=== PATIENT | male | born 1990 | race Caucasian/White ===

== ENCOUNTER 2016-07-20 10:57 | Emergency (ER) | payer BC ==
[~2016-07-20] VITALS: Ht 182.9 cm; Wt 94.8 kg
[2016-07-20 11:00] VITALS: Ht 182.9 cm; Wt 94.8 kg
[2016-07-20] MEDS ORDERED: No Routine Meds (11:26)
--- NOTE | 2016-07-20 11:26 | ERPDOC ---
Departure Disposition Decision Date: Jul 20, 2016 Disposition Decision Time: 13:24 Disposition: 01 DISCHARGED HOME, SELF-CARE Impression Impression Impression: Primary Impression: Palpitations Severity: Moderate Condition: Stable Seen By: Physician only Patient Instructions: Palpitations (ED) Problems/Meds/Labs Reviewed?: Yes Medications reviewed and manag: Yes Departure Forms: Return to Work/School Permit Return to Work/School Date: Jul 21, 2016 Follow up care ordered?: Yes Mental Status: Alert, Oriented HPI - Cardiac General Chief Complaint: Palpitations Stated Complaint: FAST HR/DIZZY Time Seen by Provider: 11:26 Source: patient Exam Limitations: no limitations HPI - Cardiac General Initial Comments Patient is a 26-year-old male presents emergency room for evaluation of palpitations, fast heart rate, dizziness. Patient was at work this morning at approximately 9:15 patient had a "hiccup", and then patient started having what he felt was a rapid heart rate with associated dizziness. Patient had a heart rate monitor that he placed on his arm and found his heart rate was in the 90s, he normally runs in the 60s. Patient called his father who brought patient to the ER for evaluation. On arrival patient's heart rate in the 90s however appears to be a normal sinus rhythm, patient is complaining of some mild shortness of air and some dizziness at this time. Patient states he's had a prior episode similar to this when he jumped off of a brick wall one time lasting several minutes and then self resolving Occurred At: home Prior CP/Workup: no prior chest pain, no prior cardiac workup Aspirin Today: contraindicated (most likely noncardiac in origin) Allergies: Coded Allergies: No Known Allergies (Unverified , 07/20/16) Past History Past Medical History Pt denies signifigant [facility] Surgical History Denies Surgeries Social History Smoking Status: Never smoker Substance Use Type: does not use Alcohol Intake: none Review of Systems Constitutional Constitutional: dizziness, DENIES: appetite decrease, chills, fever, weakness Eyes Vision: DENIES: double vision, loss of visual ruiz ENMT Balance: DENIES: vertigo Sinuses: DENIES: congestion Cardiovascular Cardiac: DENIES: chest pain, dyspnea on exertion Rhythm/Rate: palpitations, tachycardia Pulmonary Respiratory: dyspnea, DENIES: cough, sputum, tachypnea GI Upper Abdomen: DENIES: nausea, pain, vomiting Lower Abdomen: DENIES: constipation, diarrhea, pain General: DENIES: frequency, urgency Musculoskeletal General: DENIES: cramps, pain, weakness Integumentary Skin: DENIES: color change, itching, rash Endocrine Endocrine: DENIES: heat/cold intolerance Hematologic/Lymphatic Hematologic/Lymphatic: DENIES: anemia Physical Exam General General Nourishment: well nourished, well developed General Body Habitus: well groomed Vitals and Pain First Documented Vital Signs Date Time Temp Pulse Resp B/P Pulse Ox O2 Delivery O2 Flow Rate FiO2 07/20/16 11:00 98.7 86 16 133/80 98 Room Air Weight: Kilograms: 94.800 Height (feet): 6 Height (inches): 0 Triage Pain Scale: RN VS reviewed by Provider: Yes Eyes (brief) Eyes Brief: found: EOMI ENMT (brief) ENMT Brief: FOUND: mucosa moist, normal dentition, NOT FOUND: nasal erythema, pharnyx erythema, tonsillar deviation Neck (brief) Neck: NOT FOUND: adenopathy, spasm, tenderness Respiratory (brief) Respiratory: FOUND: clear all ruiz, equal bilaterally, NOT FOUND: rales, wheezes Cardiovascular (brief) Cardiac: FOUND: regular rate, regular rhythm Capillary Refill: <2 sec Abdomen (brief) Abdominal Brief: FOUND: bowel normo active x4, soft, NOT FOUND: distended, tender Lymphatic (brief) Lymphatic Brief: NOT FOUND: adenopathy Musculoskeletal (brief) Musculoskeletal Brief: NOT FOUND: spasm, tenderness Integumentary (brief) Integumentary Brief: FOUND: dry, pink, warm, NOT FOUND: rash Neurologic (brief) Neurological Brief: FOUND: CN w/o gross def to obs, motor-no gross deficits, sensory-no gross deficits Psychiatric (brief) Psychiatric Brief: FOUND: alert, oriented Differential Diagnoses Considering: Acute LA, Anxiety/Panic, Angina, Aortic Dissection, Atrial Fibrillation, Brugada Syndrome, Heart Block, Hyperventilation, PSVT, Pulmonary Edema, Pulmonary Embolus, Ventricular Tachycardia, WPW Progress Results/Orders Orders Procedure Category Date Status Time EKG EKG 07/20/16 Taken 10:59 Cbc W/Auto LAB 07/20/16 Complete Diff-Reflex Manual 11:31 D-Dimer LAB 07/20/16 Complete 11:31 Troponin I W LAB 07/20/16 Complete Hemolysis Index 11:31 Tsh - Thyroid Stim LAB 07/20/16 Complete Hormone 11:31 Bmp - Basic Metabolic LAB 07/20/16 Complete Panel 11:31 Chest 1 View RAD 07/20/16 Resulted 11:31 Iv Lock (Ed Only) EDM 07/20/16 Transmitted 12:[address] 07/20/16 Resulted 12:19 Normal Saline (Normal PHA 07/20/16 Complete Saline Iv) 12:30 Iohexol (Omnipaque) PHA 07/20/16 Complete 12:49 Normal Saline (Ns) PHA 07/20/16 Complete 12:49 Saline Flush (Iv PHA 07/20/16 Complete Flush) 12:49 Lab Results Laboratory Tests Test 07/20/16 11:44 White Blood Count 5.8T/MM3 Red Blood Count 5.00M/MM3 Hemoglobin 14.6GM/DL Hematocrit 43.8% Mean Corpuscular Volume 87.6UM3 Mean Corpuscular Hemoglobin 29.2UUG Mean Corpuscular Hemoglobin Concent 33.3GM/DL RDW Standard Deviation 41.8FL Platelet Count 130T/MM3 Mean Platelet Volume 10.5UM3 Immature Granulocyte % (Auto) 0.0% Neutrophils (%) (Auto) 66.8% Lymphocytes (%) (Auto) 26.3% Monocytes (%) (Auto) 6.0% Eosinophils (%) (Auto) 0.7% Basophils (%) (Auto) 0.2% Absolute Immature Granulocyte (auto 0.00T/MM3 Absolute Neutrophils (auto) 3.9T/MM3 Absolute Lymphocytes (auto) 1.5T/MM3 Absolute Monocytes (auto) 0.4T/MM3 Absolute Eosinophils (auto) 0.0T/MM3 Absolute Basophils (auto) 0.0T/MM3 D-Dimer 294NG/ML Turbidity < 20 Sodium Level 146MEQ/L Potassium Level 4.7MEQ/L Chloride Level 103MEQ/L Carbon Dioxide Level 30MEQ/L Anion Gap 13MEQ/L Blood Urea Nitrogen 19.0MG/DL Creatinine 0.9MG/DL Glomerular Filtration Rate Calc 104 BUN/Creatinine Ratio 21RATIO Glucose Level 99MG/DL Calculated Osmolality 283MOSM/KG Calcium Level 9.7MG/DL Icterus Index < 2 Troponin I < 0.012ng/ml Thyroid Stimulating Hormone (TSH) 1.13MIU/L Chemistry Specimen Hemolysis < 15 Medications Current ED Medications Sodium Chloride (Normal Saline IV) 1,000 ml @ 999 mls/hr Q1H1M ONCE IV Last administered on 07/20/16t 12:34; Start 07/20/16 at 12:30; Stop 07/20/16 at 13:30 ; Status DC Iohexol 1 bottle 1 bottle STK-MED ONCE .ROUTE ; Start 07/20/16 at 12:49; Stop at 12:50; Status DC Sodium Chloride (NS) 100 ml @ As Directed STK-MED ONCE .ROUTE ; Start 07/20/16 at 12:49; Stop 07/20/16 at 12:50; Status DC Sodium Chloride (Iv Flush) 10 ml STK-MED ONCE .ROUTE ; Start 07/20/16 at 12:49; Stop 07/20/16 at 12:50; Status DC Ketorolac Tromethamine (Toradol) 30 mg O ONCE IV ; Start 07/20/16 at 13:00; Stop 07/20/16 at 13:01; Status Cancel Ondansetron HCl (Zofran) 4 mg O ONCE IV ; Start 07/20/16 at 13:00; Stop at 13:01; Status Cancel EKG EKG : Rate: 60-100 Rhythm: sinus [place]: normal QRS: normal Intervals: normal ST/T: non-specific changes Interpreted by: signing physician Xray Xray : Xray: CXR Portable Interpretation: Normal, Reviewed Written Report CT CT : CT: PE IV contrast Interpretation: Normal, Reviewed Written Report ISREAL RODARTE MD Jul 20, 2016 11:26
[2016-07-20 11:56] LABS: BASOPHILS % (AUTO) 0.2 % (0-2); EOSINOPHILS % (AUTO) 0.7 % (0-4); HCT - HEMATOCRIT 43.8 % (41-53); HGB - HEMOGLOBIN 14.6 GM/DL (13.5-17.5); LYMPHOCYTES # (AUTO) 1.5 T/MM3 (1-4.8); LYMPHOCYTES % (AUTO) 26.3 % (23-45); MEAN CORPUSCULAR HGB 29.2 UUG (26-34); MEAN CORPUSCULAR HGB CONC(MCHC 33.3 GM/DL (31-37); MEAN CORPUSCULAR VOLUME 87.6 UM3 (80-100); MEAN PLATELET VOLUME 10.5 UM3 (9.4-12.4); MONOCYTES # (AUTO) 0.4 T/MM3 (0-0.8); NEUTROPHILS #(AUTO)-ABSOLUTE 3.9 T/MM3 (1.8-7.7); NEUTROPHILS % (AUTO) 66.8 % (33-66); WBC - WHITE BLOOD COUNT 5.8 T/MM3 (4.5-11.0)
[2016-07-20 12:04] LABS: ANION GAP 13 MEQ/L (5-15); BUN/CREATININE RATIO 21 RATIO (6-26); CALCIUM 9.7 MG/DL (8.4-10.2); CHLORIDE 103 MEQ/L (98-107); CO2 - CARBON DIOXIDE 30 MEQ/L (22-30); CREATININE 0.9 MG/DL (0.8-1.5); GLOMERULAR FILTRATION RATE 104; GLUCOSE 99 MG/DL (75-110); POTASSIUM 4.7 MEQ/L (3.6-5); SODIUM 146 MEQ/L (134-144)
--- NOTE | 2016-07-20 12:22 | DI ---
EXAM: CHEST 1 VIEW LOCATION OF DICTATION: [place] HISTORY: ITS.REASON: shortness of air COMPARISON: No prior studies available for comparison. FINDINGS: The heart size is normal. The mediastinal configuration is within normal limits. There are no consolidating opacities or pleural effusions. There is no pneumothorax. The osseous structures are within normal limits for the patient's age. IMPRESSION: No acute cardiopulmonary abnormalities demonstrated. .
[2016-07-20] MEDS ORDERED: NORMAL SALINE 1,000 ML IV ONE (12:30)
[2016-07-20 12:32] LABS: THYROID STIM HORMONE-TSH 1.13 MIU/L (0.47-4.68)
[2016-07-20] MEDS ORDERED: IOHEXOL 350 MG/ML 75ml INJECTION ONE (12:49)
[2016-07-20] MEDS ORDERED: NORMAL SALINE 100 ML ONE (12:49)
[2016-07-20] MEDS ORDERED: SALINE FLUSH 10ml SYRINGE ONE (12:49)
[2016-07-20] MEDS ORDERED: KETOROLAC 30mg/ml INJECTION IV ONE (13:00)
[2016-07-20] MEDS ORDERED: ONDANSETRON 4mg/2ml INJECTION IV ONE (13:00)
--- NOTE | 2016-07-20 13:17 | DI ---
EXAM: CTA PULMONARY EMBOLI LOCATION OF DICTATION: [place] HISTORY: ITS.REASON: elevated d-dimer shortness of air COMPARISON: No prior studies available for comparison. TECHNIQUE: Multiple contiguous axial images were obtained of the chest with contrast utilizing 85 mL of Omnipaque [address] angiogram protocol. Coronal, sagittal, and MIP reformatted images were utilized. Automated Exposure Control and Iterative Reconstruction dose reducing techniques were utilized. FINDINGS: The heart size is normal.There is no pericardial effusion. The visualized portions of the thoracic aorta and major branch vessels of the aortic arch fills with contrast homogenously and are unremarkable. There are no central pulmonary artery filling defects to suggest pulmonary artery embolism. The trachea and mainstem bronchi are patent.There is no consolidation, pleural effusion, or pneumothorax.There are no masses or nodules seen in the lung parenchyma. There is no axillary, hilar, or mediastinal lymphadenopathy. The visualized bones are unremarkable. IMPRESSION: 1. Unremarkable CT angiogram without evidence for pulmonary embolism. 2. No thoracic lymphadenopathy. The lungs are clear. .
[2016-07-20 13:30] VITALS: BP 114/68; PULSE 69; RESP 16; TEMP 98.7; O2SAT 99
== END 2016-07-20 13:30 | disposition home or self-care (01) ==
LOC: ED 10:57
DX: R00.2 Palpitations (principal); R00.0 Tachycardia, unspecified; R42 Dizziness and giddiness; R06.02 Shortness of breath
CPT/HCPCS: 36000; 36415; 71010; 71275; 80048; 84443; 84484; 85025; 85379; 93005; 96360; 99284; J7030; J7050; Q9967